=== PATIENT | female | born 1985 | race Two or more races ===

== ENCOUNTER 2018-05-10 02:53 | Inpatient (IN) | payer MEDICAID ==
[~2018-05-10] VITALS: Ht 154.9 cm; Wt 83.5 kg
--- NOTE | 2018-05-10 03:05 | NUR ---
Pt came to emergency dept complaining of epigastric pain that started 2 hrs ago, +vomitting, +nausea, -diarrhea, - fever. Pt AAxO4. Respirations even and unlabored. Pt put on continous monitor and pulse ox. Pending eval from ER .
--- NOTE | 2018-05-10 03:10 | NUR ---
MARTHA CA at Bedside.
[2018-05-10] MEDS ORDERED: FAMOTIDINE/PF INJ 20 MG/2 ML VIAL IV ONE ×2 (03:19→03:30)
[2018-05-10] MEDS ORDERED: ONDANSETRON HCL/PF 4 MG/2 ML VIAL ONE (03:19)
--- NOTE | 2018-05-10 03:25 | NUR ---
Worker'S Compensation Claims Examiner at bedside, labs sent.
[2018-05-10] MEDS ORDERED: ONDANSETRON HCL/PF 4 MG/2 ML VIAL IVP ONE (03:30)
[2018-05-10] MEDS ORDERED: IV NS 0.9% 1,000 ML BAG IV ONE (03:30)
[2018-05-10 03:31] LABS: APPEARANCE,URINE SL CLOUDY (CLEAR); BASOPHILS # (AUTO) 0.1 /CMM (0.0-0.2); BASOPHILS % (AUTO) 0.6 % (0.0-2.0); BILIRUBIN,URINE NEGATIVE (NEGATIVE); BLOOD, URINE TRACE-INTA Ery/uL (NEGATIVE); COLOR,URINE YELLOW (YELLOW); EOSINOPHILS % (AUTO) 1.2 % (0.0-6.0); HEMATOCRIT 40 % (33-45); HEMOGLOBIN 12.8 g/dL (11.5-14.8); KETONES,URINE NEGATIVE (NEGATIVE); LEUKOCYTE ESTERASE ,URINE NEGATIVE (NEGATIVE); LYMPHOCYTES # (AUTO) 1.4 /CMM (0.8-4.8); MEAN CORPUSCULAR HGB CONC 32 g/dl (31.0-36.0); MEAN CORPUSCULAR VOLUME 88 fL (82-100); MONOCYTES % (AUTO) 6.1 % (2.0-12.0); NEUTROPHILS # (AUTO) 14.5 /CMM (1.8-8.9); NEUTROPHILS % (AUTO) 84.1 % (43.0-81.0); NITRITE, URINE NEGATIVE (NEGATIVE); PH,URINE 6.5 (5.0-8.0); PLATELET COUNT (AUTO) 328 /CMM (150-450); PROTEIN,URINE NEGATIVE (NEGATIVE); RED BLOOD CELL COUNT(AUTO) 4.53 MIL/uL (4.0-5.2); UGLUCOSE NEGATIVE (NEGATIVE); UROBILINOGEN,URINE 0.2 EU/dL (0.2); WHITE BLOOD COUNT (AUTO) 17.3 K/uL (4.3-11.0)
[2018-05-10 03:44] LABS: ALBUMIN 3.9 g/dL (3.4-5.0); BILIRUBIN,DIRECT 0.1 mg/dL (0.0-0.2); BILIRUBIN,TOTAL 0.3 mg/dL (0.2-1.0); CREATININE 0.7 mg/dL (0.6-1.3); TOTAL PROTEIN, SERUM 8.5 g/dL (6.4-8.2)
[2018-05-10 03:51] LABS: BACTERIA,URINE 1+ /HPF (None Seen); MUCUS,URINE Few /LPF (None Seen); RBC,URINE 0-2 /HPF (0-2); SQUAMOUS EPITHELIAL CELL,UR Moderate /HPF (None Seen); WBC,URINE 0-2 /HPF (0-3)
--- NOTE | 2018-05-10 04:12 | NUR ---
Ultrasound at bedside.
[2018-05-10] MEDS ORDERED: HYDROMORPHONE INJ 0.5 MG/0.5 ML SYRINGE ONE (04:43)
[2018-05-10] MEDS ORDERED: PIPERACILLIN /TAZOBACTAM 3.375 G in IV D5W 50 ML IV ONE (05:00)
[2018-05-10] MEDS ORDERED: HYDROMORPHONE INJ 2 MG/ML DISP.SYRIN IV ONE (05:00)
[2018-05-10] MEDS ORDERED: PIPERACILLIN /TAZOBACTAM 3.375 G VIAL IV ONE (05:04)
--- NOTE | 2018-05-10 05:29 | NUR ---
CALLED RN SUP. FOR M/S BED.
--- NOTE | 2018-05-10 05:31 | NUR ---
PT ASSIGNED TO M/S 312-2
--- NOTE | 2018-05-10 05:37 | NUR ---
Report given to Yomaira DEL CASTILLO for MICHAEL.
--- NOTE | 2018-05-10 05:48 | NUR ---
DR. ASHLEE MANE SPEAKING TO DR. OLVERA REGARDING ADMISSION.
--- NOTE | 2018-05-10 06:43 | NUR ---
MS RN NOTE RECEIVED PT FROM ER VIA BNI Video. PT IS A&O X4 ABLE TO MAKE NEEDS KNOWN. ACCOMPANIED BY BOYFRIEND. NO SIGNS OF SOB OR DISTRESS. ON ROOM AIR AND TOLERATING WELL. NO C/O PAIN. PT STATES SHE WAS GIVEN SOMETHING FOR PAIN IN THE ER. PT IS AMBULATORY WITH STEADY GAIT. IV IN L AC #20 PATENT AND INTACT H/L. SAFETY PRECAUTIONS IN PLACE: BED LOW, LOCKED, UPPER RAILS UP, AND CALL LIGHT WITHIN REACH. WILL ENDORSE TO NEXT SHIFT FOR MICHAEL.
[2018-05-10] MEDS ORDERED: ACETAMINOPHEN 325 MG TABLET PO PRN (07:00)
[2018-05-10] MEDS ORDERED: HYDROMORPHONE INJ 2 MG/ML DISP.SYRIN IV PRN ×2 (07:00→15:00)
[2018-05-10] MEDS ORDERED: ONDANSETRON HCL/PF 4 MG/2 ML VIAL IVP PRN (07:00)
[2018-05-10] MEDS ORDERED: Z GUARD REMEDY 2 OZ OINT TP PRN (07:00)
--- NOTE | 2018-05-10 07:10 | NUR ---
RECEIVED PT IN BED, A/O X4. NO DISTRESS NOTED , NO COMPLAIN OF PAIN AT THIS TIME. AWAITING FOR NEW ORDERS.
[2018-05-10] MEDS: IV NS 0.9% 1,000 ML IV PRN ×2 (07:54→23:43)
[2018-05-10 08:00] VITALS: BP 86/45
[2018-05-10] MEDS: PANTOPRAZOLE 40 MG TABLET.DR PO SCH (08:55)
[2018-05-10] MEDS: LEVOFLOXACIN (500MG) 500 MG TABLET PO SCH (08:55)
[2018-05-10] MEDS: METRONIDAZOLE 500MG/ NS 100ML 500 MG in PREMIX 1 EA IV SCH ×3 (09:22→20:35)
[2018-05-10] MEDS ORDERED: HYDROCODONE/APAP 5/325MG 1 EACH TABLET PO PRN (12:00)
--- NOTE | 2018-05-10 15:09 | NUR ---
NM: HIDA SCAN WAS COMPLETED. TECH:RB.
[2018-05-10 16:00] VITALS: BP 97/64
--- NOTE | 2018-05-10 18:15 | NUR ---
PT RESTING IN BED. NO PAIN , NO S/S DISTRESS NOTED. HEPATOBILIARY HIDA RESULTS POSTED, AWAITING FOR GI CONSULT. POSSIBLE D/C FOR TOMORROW. IV FLUID RAINING AT 75ML/HR. WILL ENDORSE TO NEXT SHIFT FOR MICHAEL.
--- NOTE | 2018-05-10 19:05 | NUR ---
MS RN OPENING NOTES Received patient, sleeping in bed. Breathing even and unlabored. Not in any distress. Peripheral IV infusing at 75ml/hr. No complaints as of this time. Patient stable as endorsed by the morning RN. Will continue to monitor accordingly.
[2018-05-10 20:00] VITALS: BP 90/50
[2018-05-11] MEDS: METRONIDAZOLE 500MG/ NS 100ML 500 MG in PREMIX 1 EA IV SCH (04:35)
--- NOTE | 2018-05-11 06:55 | NUR ---
MS RN CLOSING NOTES Patient in bed, alert,oriented x4. Able to make needs known. Breathing even and unlabored. Not in any distress. Peripheral IV infusing at 75ml/hr. No complaints as of this time. Patient remains stable throughout the shift. Endorsed MICHAEL to [employer]UND[employer]
[2018-05-11 06:58] LABS: BASOPHILS # (AUTO) 0.1 /CMM (0.0-0.2); BASOPHILS % (AUTO) 1.1 % (0.0-2.0); EOSINOPHILS % (AUTO) 5.7 % (0.0-6.0); HEMATOCRIT 35 % (33-45); HEMOGLOBIN 11.4 g/dL (11.5-14.8); LYMPHOCYTES % (AUTO) 42.9 % (20.0-44.0); MEAN CORPUSCULAR HGB CONC 33 g/dl (31.0-36.0); MEAN CORPUSCULAR VOLUME 88 fL (82-100); MONOCYTES # (AUTO) 0.5 /CMM (0.1-1.30); MONOCYTES % (AUTO) 6.8 % (2.0-12.0); NEUTROPHILS % (AUTO) 43.5 % (43.0-81.0); PLATELET COUNT (AUTO) 283 /CMM (150-450); RED BLOOD CELL COUNT(AUTO) 3.92 MIL/uL (4.0-5.2); WHITE BLOOD COUNT (AUTO) 6.9 K/uL (4.3-11.0)
--- NOTE | 2018-05-11 07:08 | NUR ---
PT RESTING IN BED. NO PAIN , NO S/S DISTRESS NOTED. HEPATOBILIARY HIDA RESULTS POSTED, AWAITING FOR GI CONSULT. IV FLUID RUNNING AT 75 ML/HR. SAFETY PRECAUTIONS IN PLACE. WILL CONTINUE TO MONITOR
[2018-05-11 07:28] LABS: BILIRUBIN,TOTAL 0.3 mg/dL (0.2-1.0); CALCIUM, SERUM 8.3 mg/dL (8.5-10.1); CREATININE 0.7 mg/dL (0.6-1.3); MAGNESIUM 2.1 mg/dL (1.8-2.4); PHOSPHORUS 3.2 mg/dL (2.5-4.9); POTASSIUM 3.8 mmol/L (3.5-5.1); TOTAL PROTEIN, SERUM 6.8 g/dL (6.4-8.2)
[2018-05-11 07:32] LABS: THYROID STIMULATING HORMONE 0.9 uIU/mL (0.358-3.74)
[2018-05-11 08:00] VITALS: BP 97/61
[2018-05-11] MEDS: PANTOPRAZOLE 40 MG TABLET.DR PO SCH (08:04)
[2018-05-11] MEDS: LEVOFLOXACIN (500MG) 500 MG TABLET PO SCH (08:04)
--- NOTE | 2018-05-11 12:00 | NUR ---
pt cleared by MD for discharge to home. Vs are stable , no distress, no complain of pain. Pt educated on low fat diet and verbalized understanding.Pt received prescription, D/C paperwork and all belongings. IV line removed, ID band removed. Belongings list and d/c papers sighed and given to patient. Pt will f/u with PCP in on week.
== END 2018-05-11 13:32 | disposition home or self-care (01) ==
LOC: ER 02:56 → MED 06:03
PROVIDERS: ADMIT Internal Medicine; ATTEND Internal Medicine
DX: K80.20 Calculus of gallbladder without cholecystitis without obstruction (principal); D72.829 Elevated white blood cell count, unspecified; E66.9 Obesity, unspecified; K21.9 Gastro-esophageal reflux disease without esophagitis; Z68.34 Body mass index [BMI] 34.0-34.9, adult
CPT/HCPCS: 36415; 76705-TC; 78226; 80048-TC; 80053-TC; 80061-TC; 80076-TC; 81000-TC; 83735-TC; 84100-TC; 84443-TC; 84702-TC; 84703-TC; 85025-TC; 87081-TC; A4216; A9537; G0378; J2405; J2543; J3490; J7030; J7042; J7060

== ENCOUNTER 2019-07-17 21:21 | Emergency (ER) | payer MEDICAID ==
[~2019-07-17] VITALS: Ht 154.9 cm; Wt 71.7 kg
--- NOTE | 2019-07-17 21:40 | NUR ---
PT AAOX4. AMBULATORY WITH STEADY GAIT. BIB SELF C/O ABDOMINAL PAIN FOR ONE DAY. ALSO C/O NAUSEA AND VOMITING. PT PLACED ON MONIOTOR AND PULSE OX. VSS. WILL CONTINUE TO MONITOR.
[2019-07-17] MEDS ORDERED: ONDANSETRON HCL/PF 4 MG/2 ML VIAL ONE ×2 (21:48→22:47)
[2019-07-17] MEDS ORDERED: MORPHINE SULFATE INJ 4 MG/ML DISP.SYRIN ONE (21:48)
--- NOTE | 2019-07-17 21:48 | NUR ---
LABS AND URINE SENT TO CULINARY INTERN.
[2019-07-17 21:52] LABS: BASOPHILS % (AUTO) 0.3 % (0.0-2.0); EOSINOPHILS % (AUTO) 5.6 % (0.0-6.0); HEMATOCRIT 42 % (33-45); HEMOGLOBIN 13.6 g/dL (11.5-14.8); LYMPHOCYTES # (AUTO) 1.7 /CMM (0.8-4.8); LYMPHOCYTES % (AUTO) 13.2 % (20.0-44.0); MEAN CORPUSCULAR HGB CONC 33 g/dl (31.0-36.0); MEAN CORPUSCULAR VOLUME 90 fL (82-100); MONOCYTES # (AUTO) 0.4 /CMM (0.1-1.30); MONOCYTES % (AUTO) 3.1 % (2.0-12.0); NEUTROPHILS # (AUTO) 10.1 /CMM (1.8-8.9); NEUTROPHILS % (AUTO) 77.8 % (43.0-81.0); PLATELET COUNT (AUTO) 300 /CMM (150-450); RED BLOOD CELL COUNT(AUTO) 4.65 MIL/uL (4.0-5.2)
[2019-07-17] MEDS: MORPHINE SULFATE INJ 2 MG/ML DISP.SYRIN IV ONE (22:00)
[2019-07-17] MEDS: ONDANSETRON HCL/PF 4 MG/2 ML VIAL IVP ONE (22:00)
[2019-07-17 22:21] LABS: CALCIUM, SERUM 9.1 mg/dL (8.5-10.1); CREATININE 0.8 mg/dL (0.6-1.3); POTASSIUM 3.7 mmol/L (3.5-5.1)
[2019-07-17 22:23] LABS: APPEARANCE,URINE Turbid (CLEAR); BILIRUBIN,URINE MODERATE (NEGATIVE); BLOOD, URINE Large Ery/uL (NEGATIVE); COLOR,URINE Red (YELLOW); KETONES,URINE 15 (NEGATIVE); LEUKOCYTE ESTERASE ,URINE Large (NEGATIVE); NITRITE, URINE Negative (NEGATIVE); PH,URINE 5.5 (5.0-8.0); PROTEIN,URINE 100 mg/dl (NEGATIVE); UGLUCOSE Negative (NEGATIVE)
[2019-07-17 22:27] LABS: ALBUMIN 3.8 g/dL (3.4-5.0); BILIRUBIN,TOTAL 0.3 mg/dL (0.2-1.0); TOTAL PROTEIN, SERUM 8.6 g/dL (6.4-8.2)
[2019-07-17 22:31] LABS: BACTERIA,URINE Few /HPF (None Seen); RBC,URINE 81-100 /HPF (0-2); SQUAMOUS EPITHELIAL CELL,UR Rare /HPF (None Seen); WBC,URINE 0-2 /HPF (0-3)
[2019-07-17] MEDS ORDERED: MAG HYDROX/AL HYDROX/SIMETH 30 ML UDC ONE (22:47)
[2019-07-17] MEDS ORDERED: LIDOCAINE VISCOUS 2% UD 15 ML UDC ONE (22:47)
[2019-07-17] MEDS: ONDANSETRON HCL/PF - ER 4 MG/2 ML VIAL IV ONE (22:50)
--- NOTE | 2019-07-17 22:59 | NUR ---
Patient is resting comfortably in bed. Easily aroused. VSS.
[2019-07-17] MEDS: LIDOCAINE VISCOUS 2% UD 15 ML UDC MM ONE (23:05)
[2019-07-17] MEDS: MAG HYDROX/AL HYDROX/SIMETH 30 ML UDC PO ONE (23:05)
--- NOTE | 2019-07-17 23:26 | NUR ---
IV removed. Catheter intact and site benign. Pressure and 4x4 applied to site. No bleeding noted.
--- NOTE | 2019-07-17 23:26 | NUR ---
Patient discharged to home in stable condition. Written and verbal after care instructions given. Patient verbalizes understanding of instruction and RX. VSS. Denies pain. Ambulated with gait.
[2019-07-17 23:35] VITALS: BP 113/72
== END 2019-07-17 23:35 | disposition home or self-care (01) ==
LOC: ER 21:30
DX: K52.9 Noninfective gastroenteritis and colitis, unspecified (principal); Z88.6 Allergy status to analgesic agent; Z88.8 Allergy status to other drugs, medicaments and biological substances; Z90.49 Acquired absence of other specified parts of digestive tract
CPT/HCPCS: 36415; 76705; 80048; 80076; 81001; 83690; 84703; 85025; 96374; 96375; 96376; 99284; J2270; J2405 ×3; 81000-TC